=== PATIENT | female | born 1965 | race African-American/Black ===

== ENCOUNTER 2017-04-11 22:47 | Emergency (ER) | payer MEDICAID ==
[~2017-04-11] VITALS: Ht 152.4 cm; Wt 83.9 kg
[2017-04-11] MEDS ORDERED: HYDROCODON-ACE1 EA15 ORAL (23:14)
[2017-04-11] MEDS ORDERED: AZITHROMYCIN250 MG ORAL (23:14)
--- NOTE | 2017-04-11 23:14 | Emergency Room Report ---
History of Present Illness General Chief Complaint: Neck Pain Source: Patient Present Illness [facility] This is a 51-year-old female with a history hypertension. She presents with chief complaint of neck pain, congestion, fever and chills. Onset for 3 days. Fever last night. No nausea no vomiting. Worse with movement. No chest pain. No cough. Allergies: Coded Allergies: JULIAN INHIBITORS (Verified Allergy, Unknown, 04/11/17) Patient History Past Medical History: see triage record, old chart reviewed, HTN Past Surgical History: other - Gastric bypass Pertinent Family History: none Social History: Denies: smoking Last Menstrual Period: 2009 Now: No : 5 Para: 4 Immunizations: other Reviewed Nursing Documentation: PMH: Agreed, PSxH: Agreed Nursing Documentation-PMH Hx Cardiac Problems: No - hysterectomy 2009 Hx Hypertension: Yes Review of Systems Constitutional: Reports: fever Eye: Denies: eye pain, blurred vision ENT: Denies: ear pain, nose congestion, throat swelling Respiratory: Denies: cough, shortness of breath Cardiovascular: Denies: chest pain, palpitations Gastrointestinal: Denies: abdominal pain, diarrhea, nausea, vomiting Musculoskeletal: Denies: back pain, joint pain Skin: Denies: rash Neurological: Denies: headache, numbness Endocrine: Denies: increased thirst, increased urine Hematologic/Lymphatic: Denies: easy bruising All Other Systems: negative except mentioned in HPI Physical Exam Vital Signs Date Time Temp Pulse Resp B/P (MAP) Pulse Ox O2 Delivery O2 Flow Rate FiO2 04/11/17 22:51 99.1 92 17 159/92 94 Room Air vitals with high blood pressure Sp02 EP Interpretation: reviewed, normal General Appearance: well appearing, no apparent distress, alert Head: normocephalic, atraumatic Eyes: bilateral eye PERRL, bilateral eye EOMI ENT: hearing grossly normal, normal pharynx, other - Left TM with effusion and loss of reflex Neck: full range of motion, supple, no meningismus, tender - Tenderness to the left trapezial area Respiratory: chest non-tender, lungs clear, normal breath sounds Cardiovascular #1: regular rate, rhythm, no murmur Gastrointestinal: normal bowel sounds, non tender, no mass, no organomegaly, no bruit, non-distended Musculoskeletal: back normal, gait/station normal, normal range of motion Psychiatric: mood/affect normal Skin: warm/dry Medical Decision Making Diagnostic Impression: Primary Impression: URI (upper respiratory infection) Qualified Codes: J06.9 - Acute upper respiratory infection, unspecified; B97.89 - Other viral agents as the cause of diseases classified elsewhere Additional Impression: Otitis media Qualified Codes: H66.90 - Otitis media, unspecified, unspecified ear ER Course Patient present with a viral illness complicated by otitis media. No evidence of sepsis, meningitis or other bacterial infection. Will discharge home. Last Vital Signs Date Time Temp Pulse Resp B/P (MAP) Pulse Ox O2 Delivery O2 Flow Rate FiO2 04/11/17 22:51 99.1 92 17 159/92 94 Room Air Status: unchanged Disposition: HOME, SELF-CARE Condition: Stable Scripts Azithromycin* (ZITHROMAX*) 250 Mg Tablet 250 MG ORAL DAILY, #6 TAB 0 Refills Take two tablets by mouth today, then take one tablet by mouth daily for four days Prov: DANNY EVANS M.D. 04/11/17 Hydrocodone/Acetaminophen 5-325* (HYDROCODONE/ACETAMINOPHEN 5-325*) 1 Each Tablet 1 TAB ORAL Q6H Y for For Pain, #20 TAB 0 Refills Prov: DANNY EVANS M.D. 04/11/17 Additional Instructions: Followup with your Dr. in 7 days. Return if symptom worsen. DANNY EVANS M.D. Apr 11, 2017 23:14
[2017-04-11 23:17] VITALS: BP 159/92
== END 2017-04-11 23:21 | disposition home or self-care (01) ==
LOC: EMR 23:01
DX: J06.9 Acute upper respiratory infection, unspecified (principal); B97.89 Other viral agents as the cause of diseases classified elsewhere; H66.92 Otitis media, unspecified, left ear; Z88.8 Allergy status to other drugs, medicaments and biological substances; Z98.84 Bariatric surgery status; Z90.710 Acquired absence of both cervix and uterus; I10 Essential (primary) hypertension
CPT/HCPCS: 99284